=== PATIENT | male | born 1980 | race African-American/Black ===

== ENCOUNTER 2017-12-03 13:16 | Emergency (ER) | payer OTHER ==
[~2017-12-03] VITALS: Ht 175.3 cm; Wt 97.5 kg
[2017-12-03] MEDS ORDERED: PRINIVIL20 M1 PO (13:29)
[2017-12-03] MEDS ORDERED: HYDROCHLOROTHIA25 M2 PO (13:29)
[2017-12-03] MEDS ORDERED: HYDROCODONE-AP1 EAC6 PO (14:32)
[2017-12-03] MEDS ORDERED: CYCLOBENZAPRINE5 MG PO (14:32)
[2017-12-03 14:50] VITALS: BP 144/93
== END 2017-12-03 14:50 | disposition home or self-care (01) ==
LOC: ER 13:16
DX: S16.1XXA Strain of muscle, fascia and tendon at neck level, initial encounter (principal); S39.012A Strain of muscle, fascia and tendon of lower back, initial encounter; I10 Essential (primary) hypertension; Z88.0 Allergy status to penicillin; V49.49XA Driver injured in collision with other motor vehicles in traffic accident, initial encounter; Y93.89 Activity, other specified; Y92.89 Other specified places as the place of occurrence of the external cause; Y99.8 Other external cause status